=== PATIENT | female | born 1975 | race American Indian/Alaskan Native ===

== ENCOUNTER 2016-11-13 08:59 | Emergency (ER) | payer OTHER ==
[2016-11-13 09:27] VITALS: BMI 30.4
--- NOTE | 2016-11-13 09:28 | C.PDOC ---
History Of Present Illness Patient is a 41 y/o female c/o of pain to the right index finger at the knuckle x 1 week. Denies trauma. Denies weakness or numbness. Denies DM or IVDA. Time Seen by Provider: 11/13/16 09:22 Chief Complaint (Nursing): Upper Extremity Problem/Injury History Per: Patient History/Exam Limitations: no limitations Onset/Duration Of Symptoms: Days (1 week) Current Symptoms Are (Timing): Still Present Quality: "Pain" Severity: Mild Recent travel outside of the [place]: No Additional History Per: Patient Past Medical History Reviewed: Historical Data, Nursing Documentation, Vital Signs Vital Signs: Last Vital Signs Temp 98.3 F 11/13/16 09:38 Pulse 78 11/13/16 10:39 Resp 16 11/13/16 10:39 BP 123/75 11/13/16 10:39 Pulse Ox 98 11/13/16 12:22 - Medical History PMH: Bronchitis, Hyperthyroidism, Migraine Family History: States: Unknown Family Hx - Social History Hx Alcohol Use: Yes Hx Substance Use: No Review Of Systems Except As Marked, All Systems Reviewed And Found Negative. Constitutional: Negative for: Fever, Chills, Other (trauma) Cardiovascular: Negative for: Chest Pain Respiratory: Negative for: Cough Gastrointestinal: Negative for: Nausea, Vomiting, Constipation Genitourinary: Negative for: Dysuria Musculoskeletal: Positive for: Hand Pain (right index finger) Skin: Negative for: Other (Cellulitis) Neurological: Negative for: Weakness, Numbness Physical Exam - Physical Exam Appears: Well, Non-toxic, No Acute Distress Skin: Warm, Dry Head: Atraumatic, Normacephalic Eye(s): bilateral: Normal Inspection, PERRL, EOMI Neck: Supple Extremity: Normal ROM, No Tenderness, Capillary Refill (<2secs), No Other (no erythema, swelling or tenderness) Extremity: Bilateral: Normal Color And Temperature Pulses: Left Radial: Normal, Right Radial: Normal Neurological/Psych: Oriented x3, Normal Motor, Normal Sensation Gait: Steady ED Course And Treatment O2 Sat by Pulse Oximetry: 98 (RA) Pulse Ox Interpretation: Normal Medical Decision Making Medical Decision Making: Impression: * Pain to thee right index finger x 1 week. Plans: * Toradol Xray negative. Patient instructed on importance of anti-inflammatories and PMD follow-up Patient is in no acute distress at this time. Patient was advised to follow up with her PMD for further evaluation. Disposition - Disposition Disposition: HOME/ ROUTINE Disposition Time: 10:19 Condition: GOOD Additional Instructions: Follow-up with PMD within 2 days. Motrin for pain. Return to ED if condition worsens. Instructions: Arthralgia (ED) Forms: [facility] (Surinamese), Work Excuse - Clinical Impression Clinical Impression: Finger pain - Scribe Statement The provider has reviewed the documentation as recorded by the Scribe Erika johnson All medical record entries made by the Caibe were at my direction and personally dictated by me. I have reviewed the chart and agree that the record accurately reflects my personal performance of the history, physical exam, medical decision making, and the department course for this patient. I have also personally directed, reviewed, and agree with the discharge instructions and disposition.
[2016-11-13 09:39] VITALS: PULSE 78; TEMP 98.3; O2SAT 98
[2016-11-13 10:40] VITALS: BP 123/75; RESP 16
--- NOTE | 2016-11-13 10:49 | RAD ---
PROCEDURE: Right Hand Radiographs. HISTORY: R index finger pain COMPARISON: None. FINDINGS: BONES: Normal. No fracture. JOINTS: Normal. No osteoarthritic changes. SOFT TISSUES: Normal. OTHER FINDINGS: None. IMPRESSION: Normal right hand radiographs.
== END 2016-11-13 10:39 | disposition home or self-care (01) ==
LOC: C.ER 08:59
DX: M79.644 Pain in right finger(s) (principal)
CPT/HCPCS: 73130; 96372; 99284; J1885

== ENCOUNTER 2017-12-31 08:42 | Emergency (ER) | payer OTHER ==
[2017-12-31 09:06] VITALS: BP 133/88; PULSE 73; RESP 18; TEMP 99; O2SAT 99; BMI 36.6
[2017-12-31] MEDS ORDERED: Naproxen 550 mg Tab PO STA (09:18)
[2017-12-31] MEDS ORDERED: Naproxen 550 mg Tab PO ONE (09:28)
--- NOTE | 2017-12-31 09:37 | C.PDOC ---
History Of Present Illness 42-year-old female, presents to the emergency department with complaints of lower back pain and left leg pain. 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 Patient denies nausea/vomiting, numbness/weakness, or any other associated symptoms. No other complaints at this time. Time Seen by Provider: 12/31/17 09:03 Chief Complaint (Nursing): Lower Extremity Problem/Injury History Per: Patient History/Exam Limitations: no limitations Current Symptoms Are (Timing): Still Present Severity: Moderate Past Medical History Reviewed: Historical Data, Nursing Documentation, Vital Signs Vital Signs: Last Vital Signs Temp 99 F 12/31/17 08:50 Pulse 73 12/31/17 08:50 Resp 18 12/31/17 08:50 BP 133/88 12/31/17 08:50 Pulse Ox 99 12/31/17 08:50 - Medical History PMH: Bronchitis, Hyperthyroidism, Migraine Family History: States: No Known Family Hx - Social History Hx Alcohol Use: Yes Hx Substance Use: No - Immunization History Hx Tetanus Toxoid Vaccination: No Hx Influenza Vaccination: No Hx Pneumococcal Vaccination: No Review Of Systems Constitutional: Negative for: Fever Gastrointestinal: Negative for: Nausea, Vomiting Musculoskeletal: Positive for: Back Pain, Leg Pain Neurological: Negative for: Weakness, Numbness Physical Exam - Physical Exam Appears: Non-toxic, No Acute Distress Skin: Warm, Dry, No Rash, Ecchymosis (5cm left outer thigh and hip) Head: Atraumatic Eye(s): bilateral: Normal Inspection Nose: Normal Oral Mucosa: Moist Lips: Normal Appearing Neck: Normal ROM Back: Paraspinal Tenderness (lumbar) Extremity: Tenderness (left) Neurological/Psych: Oriented x3, Normal Speech ED Course And Treatment O2 Sat by Pulse Oximetry: 99 Pulse Ox Interpretation: Normal (RA) Progress Note: XR hip ordered and reviewed. Patient treated with Naproxyn and Flexeril Disposition Counseled Patient/Family Regarding: Studies Performed, Diagnosis, Need For Followup, Rx Given - Disposition Referrals: [facility] [Outside] Disposition: HOME/ ROUTINE Disposition Time: 10:00 Condition: STABLE Additional Instructions: FOLLOW UP WITH YOUR DOCTOR IN 1-2 DAYS USE MEDICATIONS NEEDED RETURN TO EMERGENCY ROOM IF SYMPTOMS WORSEN Prescriptions: Cyclobenzaprine [Flexeril] 10 mg PO BID PRN #15 tab PRN Reason: Muscle Spasm Naproxen 375 mg PO BID PRN #20 tablet PRN Reason: pain Instructions: Contusion (DC) Forms: [facility] (Sri Lankan), Work Excuse Print Language: BELARUSIAN - POA Present On Arrival: Falls Or Trauma - Clinical Impression Clinical Impression: Hip sprain, Contusion of hip - Scribe Statement The provider has reviewed the documentation as recorded by the Scribe (Ca Downey) All medical record entries made by the Scribe were at my direction and personally dictated by me. I have reviewed the chart and agree that the record accurately reflects my personal performance of the history, physical exam, medical decision making, and the department course for this patient. I have also personally directed, reviewed, and agree with the discharge instructions and disposition.
--- NOTE | 2017-12-31 10:19 | RAD ---
PROCEDURE: Left Hip X-ray Radiographs. HISTORY: Left hip pain after fall COMPARISON: None. FINDINGS: BONES: Bone alignment and mineralization are normal. There is no acute displaced fracture or bone destruction. JOINTS: Normal. SOFT TISSUES: Normal. OTHER FINDINGS: None. IMPRESSION: No acute fracture or dislocation.
== END 2017-12-31 10:12 | disposition home or self-care (01) ==
LOC: C.ER 08:42
DX: S73.102A Unspecified sprain of left hip, initial encounter (principal); S70.02XA Contusion of left hip, initial encounter; W01.0XXA Fall on same level from slipping, tripping and stumbling without subsequent striking against object, initial encounter